=== PATIENT | male | born 2000 | race Caucasian/White ===

== ENCOUNTER 2025-04-19 03:20 | Emergency (ER) | payer OTHER, SELFPAY ==
[2025-04-19 03:21] VITALS: BP 134/90; PULSE 97; RESP 18; TEMP 36.5; O2SAT 98; BMI 21.0
[2025-04-19 03:25] VITALS: BP 134/90; PULSE 97; RESP 18; TEMP 36.5; O2SAT 98
--- OUTSIDE RECORDS SUMMARY | 2025-04-19 03:41 | XMS RPT_ITS | CCD ---
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 Constitutional: Negative for chills and fever. Eyes: Negative for blurred vision, double vision, photophobia, pain, discharge and redness. Respiratory: Negative. Cardiovascular: Negative. Musculoskeletal: Negative. BP 128/72 Pulse 70 Temp 36.2 ?C (97.2 ?F) Resp 16 Wt 67.3 kg (148 lb 5.9 oz) SpO2 97% No past medical history on file. No past surgical history on file. ALLERGIES Patient has no known allergies. MEDICATIONS No prescriptions on file. No family history on file. Objective Physical Exam Vitals and nursing note reviewed. Constitutional: Appearance: Normal appearance. HENT: Right Ear: Tympanic membrane, ear canal and external ear normal. Left Ear: Tympanic membrane, ear canal and external ear normal. Nose: No congestion or rhinorrhea. Eyes: General: No allergic shiner. Right eye: No foreign body, discharge or hordeolum. Left eye: No discharge. Extraocular Movements: Extraocular movements intact. Conjunctiva/sclera: Conjunctivae normal. Right eye: Right conjunctiva is not injected. No chemosis, exudate or hemorrhage. Left eye: Left conjunctiva is not injected. No chemosis. Pupils: Pupils are equal, round, and reactive to light. Comments: Visual acuity: OD 20/20 OS 20/20 Cardiovascular: Rate and Rhythm: Normal rate. Pulmonary: Effort: Pulmonary effort is normal. Skin: General: Skin is warm and dry. Findings: Erythema present. No rash. Neurological: Mental Status: He is alert. ASSESSMENT/PLAN: 1. Swelling of right lower eyelid - ICD9: 374.82, ICD10: H02.842 - suspect resolving stye - POLYMYXIN B SULFATE 10,000 UNIT-TRIMETHOPRIM 1 MG/ML EYE DROPS - cool compresses will reduce swelling. - Follow-up with your PCP in 3-5 days if symptoms have not improved or sooner if symptoms worsen - Discussed red flags and need for immediate medical evaluation if any occur. - Discussed supportive care treatment with fluids, rest and analgesia. - Discussed expected course of illness BRIAN Yusuf Kathy, APRN.CNP 06/20/2024 12:21 PM Signed ASSESSMENT/PLAN: 1. Swelling of right lower eyelid - ICD9: 374.82, ICD10: H02.842 - POLYMYXIN B SULFATE 10,000 UNIT-TRIMETHOPRIM 1 MG/ML EYE DROPS - cool compresses will reduce swelling. - Follow-up with your PCP in 3-5 days if symptoms have not improved or sooner if symptoms worsen - Discussed red flags and need for immediate medical evaluation if any occur. - Discussed supportive care treatment with fluids, rest and analgesia. - Discussed expected course of illness Nam Freeman APRN.CNP Allergies As of Date: 06/20/2024 (No Known Allergies) Date Reviewed: 06/20/2024 Reviewed by: Skyla Randall MA - Fully Assessed Reason for Visit: Eye Problem [43] Cmt: right eye redness, irritation and swelling x 2 days Primary Visit Diagnosis:Swelling of right lower eyelid [H02.842] Order(s):trimethoprim -polymyxin (POLYTRIM) 10,000 unit- 1 mg/mL ophthalmic solutionUse 1 Drop in the right eye four times daily for 7 days.Disp: 10 mLRfl: 0 Prescriptions as of 06/20/2024 - trimethoprim-polymyxi n (POLYTRIM) 10,000 unit- 1 mg/mL ophthalmic solution Use 1 Drop in the right eye four times daily for 7 days. Problem List As Of Date: 06/20/2024 (None) Other instructions from your clinician: ASSESSMENT/PLAN: 1. Swelling of right lower eyelid - ICD9: 374.82, ICD10: H02.842 - POLYMYXIN B SULFATE 10,000 UNIT-TRIMETHOPRIM 1 MG/ML EYE DROPS - cool compresses will reduce swelling. - Follow-up with your PCP in 3-5 days if symptoms have not improved or sooner if symptoms worsen - Discussed red flags and need for immediate medical evaluation if any occur. - Discussed supportive care treatment with fluids, rest and analgesia. - Discussed expected course of illness Nam Praisler-Wood, FURNACE PACKER.HIGHWAY PAINTER HELPER Prescriptions ordered this encounter Disp Refills Start End POLYMYXIN B SULFATE 10,000 UNIT-TRIM* 10 mL 0 06/20/2024 06/27/2024 Route: RIGHT EYE Sig: Use 1 Drop in the right eye four times daily (more content not included)... Normal [facility] Progress Noteon 08-03-2023 Nurse Recruiter Authentication Interface Message Text Patient ID: Edgar Alonzo is a 22 y.o. male. His chief complaint(s) include: 22 YEAR WELL CHILD (Foster child coming into home, needs a form completed) Assessment 1. Routine general medical examination at a health care facility Plan Edgar was seen today for 22 year well child. Diagnoses and associated orders for this visit: Routine general medical examination at a health care facility - PHQ9 Assessment With Score - Health Risk Assessment - TRACI Discussed diet and exercise. Discussed trying to stop the vaping. Reemphasized importance of not drinking and driving. To also work on not talking on cell phone when driving. Anticipatory guidance issues reviewed. To follow up if any questions or concerns. Return for Form in bin. Subjective He is unaccompanied. 22 YEAR WELL CHILD Home: Edgar eats meals with family (when possible but not often), has an adult to turn to for help and is permitted and able to make independent decisions. Edgar has no home risk identified and does not pay the bills. 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 (Work for [employer]/Doing fairly well with work). Eating: Edgar eats regular meals including fruits and vegetables, limits fast food (could do better) and has a calcium source (some milk, cheese). Edgar does not eat breakfast and does not drink non-sweetened liquids (not a big water drinker, drinks pop, flavored energy drinks). Activities & Sports: Edgar has a job, performs at least 1 hour of physical activity daily and has drivers license. Edgar engages in screen time more than 2 hours daily. Drugs: Edgar uses alcohol (beer on occasion) and does vape. Edgar does not use tobacco and does not use drugs. Safety: Edgar has a violence free home, has peer relationships free from violence, uses seat belt and uses phone/texts while driving (needs to not discontinue). Suicidality: Edgar has ways to cope with stress, displays self-confidence and has anxiety (not overwhelming but will have issues at times). Edgar has no problems with sleep, has no depression, does not have mood swings, has no suicidal ideation, has no homicidal ideation and is not engaged in counseling. PHQ-9 Score: 0 Output Urine and Stool Pattern: Urine and Stool Pattern: Normal stool pattern, no constipation, normal urine pattern, no nocturnal enuresis. Stool Consistency: soft Sleep Sleeping Difficulty: no difficulty sleeping (on occasion will have problems falling asleep) Hours of sleep at a time: 6 (to 8 hours) Teen Anticipatory Guidance The following anticipatory guidance was reviewed during the visit: Nutrition: limit junk food/fast food and soft drinks. Safety: home safety and use safety helmet/gear with activities. Social: avoid or limit screen time and parental limits and consequences for unacceptable behavior. Health: age appropriate dental care, age appropriate sleep habits, elevated noise and hearing, avoid situations where drugs and alcohol are present, how to resist peer pressure to smoke, drink, use drugs, contraception/practic e safe sex/ use condoms, practice abstinence- the safest way to prevent and STDs, talk with trusted adult if feeling sad or nervous and learn to manage time and activities. Screenings Previous Vaccine Reactions: No. Life events information was reviewed-no referral needed (social determinant questionnaire completed: no concerns at this time) Tuberculosis Concerns: Negative Tuberculosis Screen Concerns: no exposure to Tb or person with positive ppd Hearing Vision Concerns: The caregiver has no concerns about the patient's hearing. The caregiver has no concerns about the patient's vision. Hyperlipidemia Concerns: Positive Hyperlipidemia Screen Concerns: unknown family history Primary Care Review of Systems Objective Vital Signs 08/03/23 0809 BP: 116/72 Weight: 65.9 kg Height: 166.4 cm Body mass index is 23.81 kg/m . Physical Exam Constitutional: He appears well. He is active. No distress. HENT: Head: Atraumatic. Ears: Right Ear: Tympanic membrane and external ear normal. Left Ear: Tympanic membrane and external ear normal. Nose: Nose normal. No nasal discharge. Mouth/Throat: Mucous membranes are moist. Dentition is normal. No pharynx erythema. Oropharynx is clear. Eyes: EOM are normal. Pupils are equal, round, and reactive to light. Neck: Neck supple. Thyroid normal. Cardiovascular: Normal rate, regular rhythm, S1 normal and S2 normal. Pulses are palpable. Heart murmur not heard. Pulmonary/Chest: Breath sounds normal. No respiratory distress. Exhibits no deformity. Abdominal: Soft. Bowel sounds are normal. He exhibits no distension and no mass. There is no hepatosplenomegaly. There is no abdominal tenderness. Genitourinary: Did not examine. Musculoskeletal: Cervical back: Normal range of motion and neck supple. Lumbar back: No scoliosis. General: Normal range of motion. (more content not included)... Normal [facility] EMERGENCY REPORTon 0 EMERGENCY REPORT [facility] EMERGENCY ROOM REPORT NAME ACCOUNT SEX AGE ADMIT DISCHARGE PT MED. RECORD# NUMBER DATE DATE TYPE EDGAR ALONZO [id number] [place] 03/05/20 03/05/20 3 [id number] ROOM: ER DATE OF : 2000 DICTATING PHYSICIAN: Goran Villegas CHIEF COMPLAINT/HISTORY OF PRESENT ILLNESS: The patient is a 19-year-old male ambulatory with crutches who presents to the emergency department with chief complaint of left ankle injury. Yesterday the patient was playing basketball and accidentally rolled his ankle. He did not feel or hear a pop, however, the swelling and discomfort was worse today and he is not able to bear weight so he came to the emergency department. No other injuries, no paresthesias, no previous injury to that ankle. PAST MEDICAL HISTORY: Reviewed per nursing notes. PAST SURGICAL HISTORY: Reviewed per nursing notes. MEDICATIONS: Reviewed per nursing notes. ALLERGIES: Reviewed per nursing notes. REVIEW OF SYSTEMS: Is that of the chief complaint/history of present illness, otherwise all other systems reviewed and negative. A total of 10 systems reviewed. PHYSICAL EXAMINATION: The patient is alert and oriented and in no obvious discomfort of distress. HEENT: Normocephalic and atraumatic. Neck: Supple. Heart: Regular S1, S2. Lungs: Clear to auscultation bilaterally. Musculoskeletal: Examination is without signs of clubbing, cyanosis, edema or trauma other than the left ankle. There is no gross deformity. There is moderate swelling about the lateral malleolus with localized tenderness to palpation. There is no swelling or tenderness at the lateral aspect of the foot or the proximal fibula. The patient is neurovascularly intact distally. DIAGNOSTIC DATA: X-rays were obtained which were interpreted by me as showing no signs of acute fracture and soft tissue swelling. Radiologist confirmed this. EMERGENCY DEPARTMENT COURSE AND TREATMENT: The patient remained stable throughout the course of his emergency department stay. The patient was placed in an Yordan wrap and air splint. He already has a good set of crutches. DIAGNOSIS: Acute left ankle sprain. Page 1 of 2 EDGAR ALONZO Emergency Room Report EDGAR ALONZO : 2000 PLAN/DISPOSITION: The patient is being discharged home in stable condition. The patient was advised to follow up with orthopedics within the next 2 to 3 days. Return for any worsening or other changes to symptoms. Use over the counter ibuprofen as needed. Dictated By: Goran Villegas DO 03/05/20 18:26 JOB #: [id number] Transcribed By: heraclio 03/06/20 08:07 Electronically signed by: Goran Villegas D.O. 03/27/20 07:27 Page 2 of 2 EDGAR ALONZO Emergency Room Report Normal [facility] ANKLE COMPLETE LTon 03-05-20 ANKLE COMPLETE LT [place] [address] Patient: EDGAR ALONZO Phone#: : 2000 Age: 19 Gender: M Pt. Type: ER Account: [id number] Location: [facility] Ordering: DR. GORAN VILLEGAS Exam Date: 03/05/2020/17:44 Family Phys: Charge Code: 125263 Physician: Burke Order #: [id number] DLP Dose#: PROCEDURE: X-RAY ANKLE COMPLETE LT MIN 3 VIEWS COMPARISON: None. INDICATIONS: Pain. FINDINGS: BONES: Normal. No significant arthropathy or acute abnormality. SOFT TISSUES: Moderate lateral soft tissue swelling is present. EFFUSION: None visible. OTHER: Negative. CONCLUSION: 1. Lateral soft tissue swelling. There is no evidence of acute bone abnormality. Dictated by: Liliya Barajas MD on 03/05/2020 at 17:58 Approved by: Liliya Barajas MD on 03/05/2020 at 17:[address] [facility] XR FINGER 2ND DIGIT 3 VIEWS LEFTon 03-24-2017 XR FINGER 2ND DIGIT 3 VIEWS LEFT ORIGINALLeft index finger 3 views HISTORY: Injured COMPARISON: None There is a buckle fracture identified at the ulnar aspect of the base of the proximal phalanx. I suspect that this extends to the proximal epiphysis, and is best considered a Salter-Riley type II fracture. No additional fracture or dislocation is evident. Interpreted By: Goran Chowdhuryreliminary Report By: Goran Chowdhury MDElectronically Signed By: Goran Chowdhury MD Dictated Date: 03/24/2017 3:34:33 AM Prelim Date: 03/24/2017 3:34:33 AM Sign Date: 03/24/2017 3:35:05 AM Normal [facility] [place] Out[place] Patient Summaryon 03-23-2017 Outpatient Patient Summary Normal [facility] [place] [facility] Normal [facility]) Vital Signs Date Time Vital Sign Value Performing Clinician Faci lity 04-17-2025 18:56-0400 Body temperature 98.8 [degF] Dr. Gordon Rao MD Work Phone: 5(107)[phone] [place] [address] 04-17-2025 18:56-0400 Diastolic blood pressure 84 mm[Hg] Dr. Gordon Rao MD Work Phone: 3(695)[phone] [place] [address] 04-17-2025 18:56-0400 Heart rate 91 /min Dr. Gordon Rao MD Work Phone: 6(140)475-537750 [place] [address] 04-17-2025 18:56-0400 Respiratory rate 16 /min Dr. Gordon Rao MD Work Phone: 3(959)[phone] [place] [address] 04-17-2025 18:56-0400 SaO2% (BldA) [Mass fraction] 100 % Dr. Gordon Rao MD Work Phone: 6(027)821-037850 [place] [address] 04-17-2025 18:56-0400 Systolic blood pressure 117 mm[Hg] Dr. Gordon Rao MD Work Phone: 9(800)001-112450 [place] [address] 04-17-2025 16:41-0400 Body height 172.[address] Gordon Rao MD Work Phone: 5(119)944-329350 [place] [address] 04-17-2025 16:41-0400 Body mass index (BMI) [Ratio] 20.1 kg/m2 Dr. Gordon Rao MD Work Phone: [facility] 04-17-2025 16:41-0400 Body weight 60.[address] Gordon Rao MD Work Phone: [facility] 03-13-2025 08:06-0400 Body height 162.[address] Gael Mast MD Work Phone: [facility] 03-13-2025 07:53-0400 Body temperature 97.9 [degF] Dr. Gael Mast MD Work Phone: 3(989)[phone] [place] [address] 03-13-2025 07:53-0400 Diastolic blood pressure 80 mm[Hg] Dr. Gael Mast MD Work Phone: 0(287)441-612812 [place] [address] 03-13-2025 07:53-0400 Heart rate 67 /min Dr. Gael Mast MD Work Phone: 5(511)143-046612 [place] [address] 03-13-2025 07:53-0400 Respiratory rate 16 /min Dr. Gael Mast MD Work Phone: 5(252)[phone] [place] [address] 03-13-2025 07:53-0400 SaO2% (BldA) [Mass fraction] 98 % Dr. Gael Mast MD Work Phone: [facility] 03-13-2025 07:53-0400 Systolic blood pressure 120 mm[Hg] Dr. Gael Mast MD Work Phone: [facility] 06-20-2024 12:09-0500 Body temperature 97.2 [degF] Nam Freeman FURNACE PACKER.[employer] PAINTER HELPER Work Phone: [facility] 06-20-2024 12:09-0500 Body weight 67.3 kg Nam Freeman FURNACE PACKER.[employer] PAINTER HELPER Work Phone: [facility] 06-20-2024 12:09-0500 Diastolic blood pressure 72 mm[Hg] Nam Freeman FURNACE PACKER.[employer]HW[employer] PAINTER HELPER Work Phone: [facility] 06-20-2024 12:09-0500 Heart rate 70 /min Nam Praisler-Wood FURNACE PACKER.[employer]IGHW[employer] PAINTER HELPER Work Phone: [facility] 06-20-2024 12:09-0500 Respiratory rate 16 /min Nam Praisler-Wood FURNACE PACKER.[employer]IGHW[employer] PAINTER HELPER Work Phone: [facility] 06-20-2024 12:09-0500 SaO2% (BldA) [Mass fraction] 97 % Nam Praisler-Wood FURNACE PACKER.HIGHW[employer] PAINTER HELPER Work Phone: [facility] 06-20-2024 12:09-0500 Systolic blood pressure 128 mm[Hg] Nam Praisler-Wood FURNACE PACKER.[employer]HW[employer] PAINTER HELPER Work Phone: [facility] Encounters Encounter Date Encounter Type Care Provider Facility Start: 04-17-2025 End: 04-17-2025 Emergency department patient visit Dr. Gordon Rao MD Work Phone: -Emergency Department Work Phone: Start: 03-13-2025 End: 03-13-[address] Eligio Venegas MD -[facility] Start: 03-13-2025 End: 03-13-[address] Gael Mast MD Work Phone: -[facility] Start: 06-20-2024 End: 06-20-2024 ambulatory Facility:[facility] Start: 06-20-2024 End: 06-20-2024 Patient encounter procedure Nam Brody-David F[employer]NA[employer] PACKER[employer] PAINTER HELPER Work Phone: [facility] Comment on above: Swelling of right lo wer eyelid (Primary Dx) Start: 08-03-2023 End: 08-03-2023 ambulatory GAEL MAST [facility] Start: 03-05-2020 End: 03-05-2020 Emergency department patient visit GORAN CRUM [facility] Start: 03-23-2017 End: 03-23-2017 Ambulatory NONE PHYSICIAN Facility:A Procedures Date Procedure Procedure Detail Performing Clinician Start: 04-17-[address] Gordon Rao MD Work Phone: Start: 04-17-2025 Flow cytometry cell surf marker techl only 1st Dr. Gordon Rao MD Work Phone: Start: 04-17-2025 CT of soft tissues o f neck with contrast Dr. Gordon Rao MD Work Phone: Start: 03-13-2025 Plain x-ray of hand Dr. Gael Mast MD Work Phone: Plan of Treatment Date Care Activity Detail Author Start: 06-05-2025 Urine microalbumin profile DTaP,Tdap,Td Vaccine (7 - Td or Tdap) [facility] Start: 04-17-2025 [facility] Start: 04-17-2025 End: 04-17-2025 [facility] Start: 03-13-2025 Plain x-ray of hand Hand Min 3 Views [facility] Start: 03-13-2025 XR Hand GE 3 Views [facility] Start: 04-17-2024 Covid-19 Vaccine ( season) Covid-19 Vaccine ( season) [facility] Start: 04-17-2024 Influenza vaccination Influenza Vaccine (#1) [facility] Start: 2020 Anxiety Screening Anxiety Screening [facility] Start: 2020 Depression Screening Depression Screening [facility] Start: 2020 Hepatitis C screening Hepatitis C Screening [facility] Start: 2020 HIV screening HIV Screening [facility] Start: 2018 Meningococcal B Vaccine: Consider Based On Risk (1 of 2 - Patient Seeks Protection) Meningococcal B Vaccine: Consider Based On Risk (1 of 2 - Patient Seeks Protection) [facility] Start: 2016 Peds To Adult Transition Annual Assessment Peds To Adult Transition Annual Assessment [facility] Start: 2014 Peds To Adult Transition Initial Discussion Peds To Adult Transition Initial Discussion [facility] Patient Education Tonsillitis in Adults [facility] Work Phone: Immunizations Immunization Date Immunization Notes Care Provider Ilya sotelo 07-18-2016 influenza virus vacc ine, unspecified formulation Nam Freeman APRN.CNP Work Phone: [facility] Payers Date Payer Category Payer Self-pay 2025 Unknown [id number] 2017 Private Health Insurance [id number] 2002 Unknown [id number] 1963 Unknown [id number] [id number] [id number] Private Health Insurance [id number] Private Health Insurance [id number] Unknown [id number] Unknown [id number] 2.16.8 [id number] Unknown [id number] 2.16.8 [id number] Unknown [id number] 2.16.8 [id number] Social History Date Type Detail Facility Tobacco smoking status [facility] Tobacco smoking consumption unknown [facility] Start: 2000 Sex assigned at Not on file [facility] Gender identity Not on file [facility] Start: 03-13-2025 Tobacco smoking status UTIS Smokes tobacco daily (finding) [facility] Start: 2000 Sex Assigned At Male [facility] Start: 04-17-2025 Tobacco smoking status [facility] Ex-smoker (finding) [facility] Mental Status Date Assessment Result Facility 04-17-2025 Cognitive function Level Of Cons ciousness Awake;Alert;Appropriate;Follow s Commands [facility] Work Phone: Discharge summary 04-17-2025 Note Date & Type Note Facility 04-17-2025 Discharge summary [facility] Radiology Diagnostic study note 04-17-2025 Note Date & Type Note Facility 04-17-2025 Radiology Diagnostic study note [facility] Imaging Services [address] [place], [place] [id number] Soft Tissue Neck WITH Contrast MR#: [id number] Acct: [id number] Name: EDGAR BORDEN Rep #: [id number] : 2000 M 24 From: Armond Dudley MD PCP: Care Physician,No Primary Status: REG ER Study:Soft Tissue Neck WITH Contrast Date of Exam: 04/17/25 Exam# [id number] Ordering Dr: Felix Rao MD PROCEDURE: CT SOFT TISSUE NECK WITH CONTRAST 04/17/2025 REASON FOR EXAM: DYSPHONIA, SWELLING, FEVER TECHNIQUE: Procedure Code: CTNEW Modality: CT Procedure: SOFT TISSUE NECK WITH CONTRAST CONTRAST: Isovue 370 VOLUME: 74 mL One or more dose reduction techniques were used (e.g., Automated exposure control, adjustment of the mA and/or kV according to patient size, use of iterative reconstruction technique). RADIATION DOSE SUMMARY: CTDlvol: 13.23 mGy DLP: 403.33 mGycm COMPARISON: None. FINDINGS: Markedly enlarged bilateral palatine tonsils with hyperemia compatible with tonsillitis. No drainable fluid collection/abscess or other rim enhancing lesion is seen. No prevertebral/retropharyngeal soft tissue swelling. Mild-moderate narrowing of the oropharyngeal airway due to tonsillar enlargement. Prominent bilateral generalized cervical lymphadenopathy, most likely reactive. Bilateral major salivary glands appear symmetric and within normal limits. Unremarkable thyroid. Major vascular structures are patent, normal in course and caliber. 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 Visualized osseous structures are intact and within normal limits. Well-aeratedparanasal sinuses and bilateral mastoid air cells, and middle ear cavities. Clear lung apices. CT/Soft Tissue Neck WITH Contrast IMPRESSION: Markedly enlarged bilateral palatine tonsils with hyperemia compatible with tonsillitis. No drainable fluid collection/abscess or retropharyngeal edema. Mild-moderate oropharyngeal airway narrowing. Prominent generalized bilateral cervical lymphadenopathy, likely reactive. Reading Location: [id number] CC: Dr. Gordon Rao MD; No Primary Care Physician ~ Cooling Machine Operator: Signed [facility] Discharge summary 04-17-2025 Note Date & Type Note Facility 04-17-2025 Discharge summary Note Date/Time April 17, 2025 6:39pm [facility] Medical Records Department [address] [place] [id number] Emergency Department Summary 04/17/25 MR#: [id number] Acct: [id number] Name: EDGAR BORDEN Rep #:[id number] : 2000 24 From: Gordon Rao MD PCP: Care Physician,No Primary Status :REG ER Location: ED HPI History of Present Illness Chief Complaint: Other, Pain/Inj Detail of Chief Complaint: Sore throat, fever, dysphonia, neck swelling Informant: patient Onset/Context/Timing Onset: Days (2 days ago) Context: Sudden Onset Timing: Continuous Quality: Tmax 102.6 degrees Location: Upper airway Current Severity: Mild Maximum Severity: Moderate Worsened by: Swallowing Relieved by: Nothing Associated Symptoms Associated Symptoms: HPI narrative Narrative Narrative: Patient is a 24-year-old male. He presents because of Tmax 102.6, sore throat, dysphonia, neck swelling left greater than right, compression of airway . Patient symptoms started 2 days ago. He denies rhinorrhea, congestion postnasaldrainage. Reports slight cough. He is a smoker. The cough is nonproductive. He denies myalgias arthralgias. He does endorse chills. He denies rash. Denies history of medic fever, heart murmur or mitral valve prolapse. Patient denies headache, photophobia posterior neck pain or neck stiffness. Patient denies dyspnea, dyspnea on exertion or chest discomfort. Patient denies abdominal pain, nausea, vomiting or diarrhea. Recent Illness/Hospitalization: No PFSH PFSH Medical History no medical history no medical history Home Medications ?Medication ?Instructions ?Recorded ?Last Taken ?Type amoxicillin 875 mg-potassium 875 mg PO Q12H #20 TABLET S 04/17/25 Unknown Rx clavulanate 125 mg tablet dexamethasone 4 mg tablet 4 mg PO DAILY #3 tabs Unknown Rx Allergy/AdvReac Type Severity Reaction Status Date / Time No Known Allergies Allergy Verified 04/17/25 16:40 Social History (Updated 04/17/25 @ 18:[address] Gordon Rao MD) household members: family Smoking Status: Former smoker ROS ROS ED Constitutional Constitutional ED: Reports chills and fever(s); Denies subjective or sweats Eyes Eyes: Reports other Details: No photophobia ; Denies blurry vision or change in vision ENT ENT ED: Reports sore throat; Denies ear pain or rhinorrhea Cardiovascular Cardiovascular: Denies chest pain, orthopnea, palpitations, paroxysmal nocturnaldyspnea or racing heartbeat Respiratory/Chest Respiratory/Chest: Reports cough; Denies dyspnea, dyspnea on exertion, orthopnea, paroxysmal nocturnal dyspnea or sputum Gastrointestinal Gastrointestinal: Denies abdominal pain, diarrhea, nausea or vomiting Musculoskeletal Musculoskeletal: Reports neck pain; Denies arthralgias or myalgias Integumentary Denies rash Neurologic Neurologic: Denies headache(s) or weakness Hematologic/Lymphatic Hematologic/Lymphatic: Reports systems reviewed and no addt'l complaints, exceptas documented EXAM Physical Exam Const Vital Signs: 04/17/25 16:41 04/17/25 17:32 Temperature 101.9 F H Temperature Source Oral Pulse Rate 113 H Respiratory Rate 18 Respiratory Effort Normal Respiratory Depth Normal Respiratory Pattern Normal Blood Pressure 141/81 H Blood Pressure Mean 101 Pulse Ox 94 Oxygen Delivery Method Room Air Positive well nourished and well developed Constitutional Narrative: Patient appears in no obvious distress. His voice is slightly muffled. His blood pressure is elevated. He is tachycardic with a temperature 101.9. General Appearance ED: well developed; Negative for pallor HEENT HEENT Narrative: Exudative tonsillitis. With abutment of the uvula. There is evidence of a peritonsillar cellulitis without abscess. He does have slight dysphonia. Eyes PERRL and EOMs intact bilaterally General Eye ED: Negative for pale conjunctiva or scleral icterus Neck No no lymphadenopathy, supple and no JVD Neck Narrative: Trachea is midline. There is no discomfort with movement of the larynx. There is no inspiratory expiratory stridor. He does have cervical lymphadenopathy left greater than right. There is obvious swelling noted on the left. There isno evidence of facial cellulitis or cellulitis over the anterior neck. There isno tenderness over the carotid arteries. There is no carotid bruits noted. Patient is not drooling. There is no trismus. Resp normal respiratory effort and clear to auscultation bilaterally Cardio regular rhythm, S1 normal heart sound, S2 normal heart sound and no murmurs Rate: tachycardic GI normal to inspection, nondistended, normoactive bowel sounds, non-tender, non-distended and no masses; Negative for hepatosplenomegaly Extremity normal to inspection Neuro oriented x3 and CN's II-XII intact bilaterally Sensorium / Orientation: alert Psych mental status grossly normal Skin no rashes or lesions noted, no wounds and skin turgor normal General Skin Exam: elasticity normal; Negative for jaundice or pallor MDM MDM MDM Narrative Medical decision making narrative: With swelling, dysphonia, complaining that his throat is being compressed we will obtain CT of the neck with IV contrast. This was obtained to evaluate for retropharyngeal abscess, parapharyngeal abscess, Ludewig's angina is not considered since he has no dental pain and there is no swelling or abnormality of the floor of the mouth. He was treated with Decadron, Unasyn and appropriate labs were obtained. Lab Data Attestation: I reviewed the patient's lab results. Lab results narrative: White count is 16.3 with 42 neutrophils 8 bands and 37% lymphocytes. There is no atypical lymphocytes noted. Electrolyte panel reveals mild hyponatremia and hypochloremia. Glucose is slightly elevated 106 with normal CO2 anion gap. BUNand creatinine are normal with an estimated GFR of 116. Labs: Laboratory Results - last 24 hr 04/17/25 17:07 WBC 16.3 H RBC 4.80 Hgb 14.5 Hct 42.3 MCV 88.1 MCH 30.2 MCHC 34.3 RDW Std Deviation 39.9 RDW Coeff of Alessandro 12.6 Plt Count 212 MPV 9.9 Neut % (Auto) Not Reportable Absolute Neuts (auto) 8.1 H Absolute Lymphs (auto) 6.02 H Total Counted 100 Neutrophils % (Manual) 42 L Band Neutrophils % 8 H Lymphocytes % (Manual) 37 Monocytes % (Manual) 10 Eosinophils % (Manual) 3 Platelet Estimate ADEQUATE RBC Morphology NORM C+C Sodium 132 L Potassium 4.6 Chloride 95 L Carbon Dioxide 23.5 Anion Gap 13 BUN 8 Creatinine 0.95 Estim Creat Clear Calc 103.53 Est GFR (MDRD) Non-Af 116 BUN/Creatinine Ratio 8.8 L Glucose 106 H Calcium 8.8 Radiography Diagnostic Testing: Clinical Impression(s) from Imaging Studies Soft Tissue Neck CT 04/17/25 16:55 IMPRESSION: Markedly enlarged bilateral palatine tonsils with hyperemia compatible with tonsillitis. No drainable fluid collection/abscess or retropharyngeal edema. Mild-moderate oropharyngeal airway narrowing. Prominent generalized bilateral cervical lymphadenopathy, likely reactive. Reading Location: [facility] The radiology report was noted. Plan is discharge to home on Augmentin and short burst of Decadron. Parents see Dr. Dixon Hanley. Parents asked if he could follow-up with Dr. Hanley. 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 seen on tactical intelligence officer, Fever in adult, Peritonsillar cellulitis, Dehydration, mild Instructions: Tonsillitis in Adults Prescriptions: New amoxicillin-pot clavulanate 875-125 mg tablet 875 mg PO Q12H Qty: 20 0RF dexamethasone 4 mg tablet 4 mg PO DAILY Qty: 3 0RF Primary Care Provider: Care Physician,No Primary Referrals: Dixon Hanley MD [Med Staff - Active Staff] - 3-5 Days if not improving Care Physician,No Primary [Primary Care Provider] - Print Language: Setswana Disposition Disposition: Home, Self Care What to do if you have Problems For any increased pain, shortness of breath, bleeding, nausea or vomiting, chestpain, or any unexpected problems, contact your Primary Care Provider. Call [facility] ([phone]) or report to the closest Emergency Room. Call 911 if necessary. 04/17/25 1839 <Electronically signed by Gordon Rao MD> Cosigner Signature (if applicable): CC: No Primary Care Physician ~ Signed [facility] Work Phone: Instructions 06-20-2024 Patient Instructions Note Date & Type Note Facility 06-20-2024 Instructions Nam Freeman, [facility] - 06/20/2024 12:21 PM EST ASSESSMENT/PLAN: 1. Swelling of right lower eyelid - ICD9: 374.82, ICD10: H02.842 - POLYMYXIN B SULFATE 10,000 UNIT-TRIMETHOPRIM 1 MG/ML EYE DROPS - cool compresses will reduce swelling. - Follow-up with your PCP in 3-5 days if symptoms have not improved or sooner if symptoms worsen - Discussed red flags and need for immediate medical evaluation if any occur. - Discussed supportive care treatment with fluids, rest and analgesia. - Discussed expected course of illness Nam Freeman APRN.HIGHWAY PAINTER HELPER documented in this encounter [facility] Progress note 06-20-2024 Note Date & Type Note Facility 06-20-2024 Note HNO ID: [id number] Author: NAM FREEMAN APRN.GHANSHYAM Service: ? Author Type: Nurse Practitioner Type: Progress Notes Filed: 06/20/2024 12:26 Note Text: Subjective Eye Problem Pertinent negatives include no chills or fever. Edgar Alonzo is a 23 year old male who presents with right lower eyelid swelling and tenderness for the past 2 days. This started on Thursday States eye was almost swollen shut. Denies eye pain, discharge, or visual changes No ear pain or sore throat No cough, congestion. He has not used any medication in the eye. Denies trauma to the eye. Review of Systems Constitutional: Negative for chills and fever. Eyes: Negative for blurred vision, double vision, photophobia, pain, discharge and redness. Respiratory: Negative. Cardiovascular: Negative. Musculoskeletal: Negative. BP 128/72 Pulse 70 Temp 36.2 ?C (97.2 ?F) Resp 16 Wt 67.3 kg (148 lb 5.9 oz) SpO2 97% No past medical history on file. No past surgical history on file. ALLERGIES Patient has no known allergies. MEDICATIONS No prescriptions on file. No family history on file. Objective Physical Exam Vitals and nursing note reviewed. Constitutional: Appearance: Normal appearance. HENT: Right Ear: Tympanic membrane, ear canal and external ear normal. Left Ear: Tympanic membrane, ear canal and external ear normal. Nose: No congestion or rhinorrhea. Eyes: General: No allergic shiner. Right eye: No foreign body, discharge or hordeolum. Left eye: No discharge. Extraocular Movements: Extraocular movements intact. Conjunctiva/sclera: Conjunctivae normal. Right eye: Right conjunctiva is not injected. No chemosis, exudate or hemorrhage. Left eye: Left conjunctiva is not injected. No chemosis. Pupils: Pupils are equal, round, and reactive to light. Comments: Visual acuity: OD 20/20 OS 20/20 Cardiovascular: Rate and Rhythm: Normal rate. Pulmonary: Effort: Pulmonary effort is normal. Skin: General: Skin is warm and dry. Findings: Erythema present. No rash. Neurological: Mental Status: He is alert. ASSESSMENT/PLAN: 1. Swelling of right lower eyelid - ICD9: 374.82, ICD10: H02.842 - suspect resolving stye - POLYMYXIN B SULFATE 10,000 UNIT-TRIMETHOPRIM 1 MG/ML EYE DROPS - cool compresses will reduce swelling. - Follow-up with your PCP in 3-5 days if symptoms have not improved or sooner if symptoms worsen - Discussed red flags and need for immediate medical evaluation if any occur. - Discussed supportive care treatment with fluids, rest and analgesia. - Discussed expected course of illness Nam Freeman APRN.CNP [facility] History of Present illness Narrative 06-20-2024 Nam Freeman APRN.GHANSHYAM - 06/20/2024 12:20 PM EST Note Date & Type Note Facility 06-20-2024 History of Presen t illness Narrative Images from the original note were not included. Subjective Eye Problem Pertinent negatives include no chills or fever. Edgar Alonzo is a 23 year old male who presents with right lower eyelid swelling and tenderness for the past 2 days. This started on Thursday States eye was almost swollen shut. Denies eye pain, discharge, or visual changes No ear pain or sore throat No cough, congestion. He has not used any medication in the eye. Denies trauma to the eye. Review of Systems Constitutional: Negative for chills and fever. Eyes: Negative for blurred vision, double vision, photophobia, pain, discharge and redness. Respiratory: Negative. Cardiovascular: Negative. Musculoskeletal: Negative. BP 128/72 Pulse 70 Temp 36.2 C (97.2 F) Resp 16 Wt 67.3 kg (148 lb 5.9 oz) SpO2 97% No past medical history on file. No past surgical history on file. ALLERGIES Patient has no known allergies. MEDICATIONS No prescriptions on file. No family history on file. Objective Physical Exam Vitals and nursing note reviewed. Constitutional: Appearance: Normal appearance. HENT: Right Ear: Tympanic membrane, ear canal and external ear normal. Left Ear: Tympanic membrane, ear canal and external ear normal. Nose: No congestion or rhinorrhea. Eyes: General: No allergic shiner. Right eye: No foreign body, discharge or hordeolum. Left eye: No discharge. Extraocular Movements: Extraocular movements intact. Conjunctiva/sclera: Conjunctivae normal. Right eye: Right conjunctiva is not injected. No chemosis, exudate or hemorrhage. Left eye: Left conjunctiva is not injected. No chemosis. Pupils: Pupils are equal, round, and reactive to light. Comments: Visual acuity: OD 20/20 OS 20/20 Cardiovascular: Rate and Rhythm: Normal rate. Pulmonary: Effort: Pulmonary effort is normal. Skin: General: Skin is warm and dry. Findings: Erythema present. No rash. Neurological: Mental Status: He is alert. ASSESSMENT/PLAN: 1. Swelling of right lower eyelid - ICD9: 374.82, ICD10: H02.842 - suspect resolving stye - POLYMYXIN B SULFATE 10,000 UNIT-TRIMETHOPRIM 1 MG/ML EYE DROPS - cool compresses will reduce swelling. - Follow-up with your PCP in 3-5 days if symptoms have not improved or sooner if symptoms worsen - Discussed red flags and need for immediate medical evaluation if any occur. - Discussed supportive care treatment with fluids, rest and analgesia. - Discussed expected course of illness Nam Freeman APRN.HIGHWAY PAINTER HELPER documented in this encounter [facility] Evaluation note Note Date & Type Note Facility Evaluation note Diagnosis Swelling of right lower eyelid- Primary documented in this encounter [facility] Evaluation note Note Date & Type Note Facility Evaluation note No assessment information availa ble [facility] Work Phone: Reason for referral (narrative) Note Date & Type Note Facility Reason for referral (narrative) No reason for referral information available [facility] Work Phone: Summary Purpose Family History No Family History Records FoundNo Family History Records FoundNo Family History Records FoundNo Family History Records FoundNo Family History Records FoundNo Family History Records Found Advance Directives No Advanced Directives Records Found Advance Directive Response Recorded Date/ Time Do you have a Healthcare Power of Atg Java Developer? No April 17, 2025 5:32pm Chief Complaint and Reason for Visit Chief Complaint Admit Date R PINKY INJURY March 13, 2025 7:52 am XRAY March 13, 2025 8:07 am Chief Complaint Admit Date neck pain, swelling, cough April 4:39pm Additional Source Comments (unrecognized sect ion and content) No Status Records FoundNo Status Records FoundNo Status Records FoundNo Status Records FoundNo Status Records FoundNo Status Records Found INFORMATION SOURCE (unrecogn ized section and content) DATE CREATED AUTHOR 02/10/2018 [facility] ([place]) DATE CREATED AUTHOR AUTHOR'S ORGANIZ ATION 03/27/2020 [facility] DATE CREATED AUTHOR AUTHOR'S ORGANIZ ATION 08/05/[address] [facility] DATE CREATED AUTHOR AUTHOR'S ORGANIZ ATION 06/21/2024 [facility] DATE CREATED AUTHOR AUTHOR'S ORGANIZ ATION 03/13/2025 [facility] DATE CREATED AUTHOR AUTHOR'S ORGANIZ ATION 04/17/2025 [facility] Source Comments (unrecognize d section and content) In the event this informatio n is protected by the Federal Confidentiality of Alcohol and Drug Abuse Patient Records regulations: The Federal rules restrict any use of the information to criminally investigate or prosecute any alcohol or drug abuse patient.[facility] Reason for Visit (unrecogniz ed section and content) Reason Comments Eye Problem right eye redness, i rritation and swelling x 2 days Care Teams (unrecognized sec tion and content) Team Status: Active Member Role/Relationship Status Dates Dr. Gael Mast MD Family Provider Active Dr. Gael Mast MD Primary Care Provider Active Team Status: Active Member Role/Relationship Status Dates Dr. Gael Mast MD Primary Care Provider Active Start: March 13, 2025 Dr. Gael Mast MD Referring Provider Active Start: March 13, 2025 Jose Dalton PA, PA Attending Provider Active Start: March 13, 2025 Team Status: Inactive Member Role/Relationship Status Dates Dr. Gael Mast MD Primary Care Provider Active Start: March 13, 2025 End: March 13, 2025 Dr. Eligio Venegas MD Attending Provider Active S tart: March 13, 2025 End: March 13, 2025 Team Status: Inactive Member Role/Relationship Status Dates Dr. Gael Mast MD Primary Care Provider Active Start: March 13, 2025 End: March 13, 2025 Dr. Gael Mast MD Referring Provider Active Start: March 13, 2025 End: March 13, 2025 Jose Dalton PA, PA Attending Provider Active Start: March 13, 2025 End: March 13, 2025 Team Status: Active Member Role/Relationship Status Dates No Primary Care Physician Primary Care Provider Active Team Status: Inactive Member Role/Relationship Status Dates Dr. Gordon Rao MD Emergency Provider Active Sta rt: April 17, 2025 End: April 17, 2025 No Primary Care Physician Primary Care Provider Active Start: April 17, 2025 End: April 17, 2025 Goals (unrecognized section and content) Goals may be documented in a n alternate sectionGoals may be documented in an alternate sectionGoals may be documented in an alternate section FOR RECORDS PERTAINING TO PATIENTS WHO ARE OR HAVE BEEN ENROLLED IN A CHEMICAL DEPENDENCY/SUBSTANCEABUSE PROGRAM, SOME INFORMATION MAY BE OMITTED. This clinical summary was aggregated from multiple sources. Caution should be exercised in using it in the provision of clinical care. This summary normalizes information from multiple sources, and as a consequence, information in this document may materially change the coding, format and clinical context of patient data. In addition, data may be omitted in some cases. CLINICAL DECISIONS SHOULD BE BASED ON THE PRIMARY CLINICAL RECORDS. [facility]. provides no warranty or guarantee of the accuracy or completeness of information in this document.
--- NOTE | 2025-04-19 03:55 | RAD_ITS ---
PROCEDURE: NECK FOR SOFT TISSUE 04/19/2025 REASON FOR EXAM: PAIN TECHNIQUE: Procedure Code: RADNE Modality: DX Procedure: NECK FOR SOFT TISSUE COMPARISON: None. FINDINGS: Mild hypertrophy of the palatine tonsils is suspected. Normal epiglottis, without demonstrated thickening or altered morphology. Normal visualized nasopharynx, oropharynx, hypopharynx. Normal prevertebral soft tissue structures. Normal visualized subglottic tracheal air column. Normal osseous structures. There is no demonstrated soft tissue abnormality. RAD/Neck for Soft Tissue IMPRESSION: Suspected mild hypertrophy of the palatine tonsils. No critical airway narrowing. [facility]
--- NOTE | 2025-04-19 04:14 | EX.ED.DYSGE1 ---
HPI History of Present Illness Chief Complaint: Sore Throat Informant: patient Narrative Narrative: Patient is a 24-year-old male with no significant past medical history. He was seen in the ER yesterday secondary to sore throat and at that time had a CT scan of the soft tissue of the neck with IV contrast secondary to his tonsillar swelling. The CT scan showed enlarged tonsils consistent with tonsillitis but no drainable fluid collection or epiglottitis or signs of free air. Patient was discharged home on antibiotics and steroid. He states he was sleeping when he awoke with sensation of shortness of breath and secondary to this new onset of symptoms he presents for reevaluation. [facility] Medical History (Updated 04/19/25 @ 05:[address] Bernardo Rousseau, DO) Contusion of right little finger Contusion of right hand Home Medications ?Medication ?Instructions ?Recorded ?Last Taken ?Type prednisone 20 mg tablet 40 mg (2 x 20 mg) PO DAILY 5 days 04/19/25 Unknown Rx #10 tabs Allergy/AdvReac Type Severity Reaction Status Date / Time No Known Allergies Allergy Verified 04/19/25 03:21 Family History no significant family his Social History Smoking Status: Current every day smoker tobacco type: e-cigarettes alcohol intake: never ROS ROS ED Constitutional Constitutional ED: Denies chills or fever(s) ENT ENT ED: Reports sore throat Cardiovascular Cardiovascular: Denies chest pain Respiratory/Chest Respiratory/Chest: Reports cough and dyspnea Gastrointestinal Gastrointestinal: Denies abdominal pain, diarrhea, nausea or vomiting Musculoskeletal Musculoskeletal: Denies myalgias Integumentary Denies rash Neurologic Neurologic: Denies headache(s) Hematologic/Lymphatic Hematologic/Lymphatic: Denies easy bleeding or easy bruising Allergic/Immunologic Allergic/Immunologic ED: Denies mouth swelling or tongue swelling EXAM Physical Exam Const Vital Signs: 04/19/25 03:21 04/19/25 03:25 04/19/25 05:00 Temperature 97.7 F L 97.7 F L 98 F Temperature Source Oral Oral Oral Pulse Rate 97 97 75 Respiratory Rate 18 18 18 Blood Pressure 134/90 H 134/90 H 124/81 H Blood Pressure Mean 104 104 95 Pulse Ox 98 98 100 Oxygen Delivery Method Room Air Room Air Room Air 04/19/25 05:00 Temperature 98.1 F Temperature Source Pulse Rate 75 Respiratory Rate 18 Blood Pressure 124/81 H Blood Pressure Mean 95 Pulse Ox 100 Oxygen Delivery Method Positive well nourished and well developed General Appearance ED: well developed; Negative for pallor HEENT HEENT Narrative: No tongue or lip swelling noted Patient has +3 tonsil hypertrophy bilaterally with diffuse erythema in the posterior pharynx and scant exudates There is no trismus or change in voice or difficulty with secretions; no obvious abscess formation Eyes PERRL and EOMs intact bilaterally Neck supple Neck Narrative: There is bilateral anterior cervical lymphadenopathy noted No crepitance palpated No nuchal rigidity or meningeal signs Resp normal respiratory effort and clear to auscultation bilaterally Resp Narrative: No nasal flaring retractions tachypnea stridor or accessory muscle use Cardio regular rate and regular rhythm Extremity normal to inspection Neuro oriented x3, CN's II-XII intact bilaterally and no sensory deficits noted Sensorium / Orientation: alert Motor Exam: strength 5/5 throughout Psych mental status grossly normal Skin no rashes or lesions noted General Skin Exam: Negative for jaundice or pallor MDM MDM MDM Narrative Medical decision making narrative: Patient arrived to the ER slightly hypertensive but otherwise with stable vitals. He was just seen the previous day and had blood work and a CT scan that revealed no sign of abscess or free air. He reported that he woke with shortness of breath but has had improvement at this time. This history and exam is most consistent with obstructive sleep apnea secondary to his enlarged tonsils. Based on this history and exam I do not feel the need for repeat labs or CT scan but I will perform a soft tissue neck x-ray to ensure there is no sign of developing epiglottitis or free air. X-ray revealed changes consistent with enlarged palatine tonsils but was otherwise normal. As the patient is not having findings concerning for peritonsillar abscess or epiglottitis x-ray reveals no sign of free air to suggest a potential Rosey-Leonard tear or pneumomediastinum and he is already on steroids and antibiotics I do not feel there is need for any further intervention at this time and is otherwise safe for discharge History & Record Review Discussion w/independent historian: Patient Radiography Diagnostic Testing: Clinical Impression(s) from Imaging Studies Soft Tissue Neck X-Ray 04/19/25 03:55 IMPRESSION: Suspected mild hypertrophy of the palatine tonsils. No critical airway narrowing. Reading Location: [place] [id number] Soft tissue neck x-ray as interpreted by the emergency medicine physician reveals top hypertrophy without findings of epiglottitis or free air Discharge Plan Triage Chief Complaint: Sore Throat ED Provider: Bernardo Rousseau Dx/Rx/DC Orders Clinical Impression: Acute pharyngitis, Lymphadenopathy, Tonsillar hypertrophy Instructions: Self-Care for Sore Throats, Lymphadenopathy Prescriptions: New prednisone 20 mg tablet 40 mg PO DAILY 5 Days Qty: 10 0RF Primary Care Provider: Nuha Munroe Referrals: Nhua Munroe MD [Primary Care Provider] - Activity Restrictions/Additional Instructions: Please continue the steroid as directed as this will help reduce tonsillar swelling and inflammation. Take the antibiotic as well to resolve secondary infection. Your history and exam tonight indicate that the shortness of breath was due to the enlarged tonsils blocking your airway while you slept. This can be common when your tonsils are swollen/enlarged. Please sleep sitting up as this will help prevent reoccurrence and on top of your prescribed medications continue with salt water gargles which should help reduce swelling as well. If it progresses to the point where you are not able to swallow medication or even your saliva or you have any further concerns please return to the ER for repeat evaluation. Print Language: Bhutanese Disposition Disposition: Home, Self Care Discharge Date/Time: 04/19/25 05:11
[2025-04-19 05:00] VITALS: BP 124/81; PULSE 75; RESP 18; TEMP 36.6; TEMP 36.7; O2SAT 100
== END 2025-04-19 05:11 | disposition home or self-care (01) ==
PROVIDERS: Emergency Provider Emergency Medicine; PCP Pediatrics; Visit Provider Emergency Medicine
DX: J02.9 Acute pharyngitis, unspecified (principal); J35.1 Hypertrophy of tonsils; F17.290 Nicotine dependence, other tobacco product, uncomplicated; R59.9 Enlarged lymph nodes, unspecified
CPT/HCPCS: 70360; 99282; A4216